=== PATIENT | female | born 1960 | race Caucasian/White ===

== ENCOUNTER 2023-12-11 20:44 | Emergency (ER) | payer BC ==
[~2023-12-11] VITALS: Ht 165.1 cm; Wt 79.4 kg
[2023-12-11 20:49] VITALS: BP_SYST 190; PULSE 78; RESP 20; TEMP 98; O2SAT 98
[2023-12-11] MEDS ORDERED: BACITRACIN 1 GM OINT TP ONE (21:14)
[2023-12-11 22:33] VITALS: BP_SYST 160; PULSE 74; RESP 20; TEMP 98; O2SAT 74
[2023-12-11] MEDS: IBUPROFEN 600 MG TABLET PO ONE (22:42)
== END 2023-12-11 22:33 | disposition home or self-care (01) ==
LOC: SED 20:44
DX: S01.81XA Laceration without foreign body of other part of head, initial encounter (principal); M79.641 Pain in right hand; W18.39XA Other fall on same level, initial encounter; Y93.89 Activity, other specified; Y92.89 Other specified places as the place of occurrence of the external cause; Y99.8 Other external cause status
CPT/HCPCS: 70450-TC; 99284